=== PATIENT | female | born 1975 ===

== ENCOUNTER 2017-08-21 21:35 | Emergency (ER) | payer BC, OTHER ==
[2017-08-21 21:36] VITALS: BMI 39.8
[2017-08-21 21:46] VITALS: O2SAT 99
[2017-08-21 21:56] LABS: BASO # 0.03 K/mm3 (0.0-2.0); BASO % 0.4 % (0.0-3.0); EOS # 0.3 (0.0-0.7); EOS % 3.7 % (1.5-5.0); GRAN # 3.82 (1.4-6.5); GRAN % 47.2 % (50.0-68.0); HEMATOCRIT 42.8 % (36.0-48.0); LYMPH # 3.2 (1.2-3.4); LYMPH % 39.2 % (22.0-35.0); MEAN CELL VOLUME 82.6 fl (80.0-105.0); MEAN CORPUSCULAR HEMOGLOBIN 26.6 pg (25.0-35.0); MEAN CORPUSCULAR HGB CONC 32.2 g/dl (31.0-37.0); MEAN PLATELET VOLUME 11.2 fl (7.0-11.0); MONO # 0.8 (0.1-0.6); MONO % 9.5 % (1.0-6.0); RED CELL DISTRIBUTION WIDTH 14.2 % (11.5-14.5); WHITE BLOOD COUNT 8.1 10^3/ul (4.5-11.0)
[2017-08-21] MEDS: Albuterol-Ipratrop 3 mg / 0.5 (3 ml) UD IH SCH ×3 (21:57→22:24)
--- NOTE | 2017-08-21 21:57 | ED PDOC ---
Arrival/HPI <Mickey Rdz - Last Filed: 08/21/17 22:56> - General Historian: Patient - History of Present Illness Time/Duration: Prior to Arrival Symptom Onset: Gradual Symptom Course: Unchanged Quality: Other Severity Level: Moderate Context: Exertion <Rojas Peoples - Last Filed: 08/22/17 06:41> - General Chief Complaint: Respiratory Distress Time Seen by Provider: 08/21/17 21:41 - History of Present Illness Narrative History of Present Illness (Text): 08/21/17 21:53 This is a 42 yo female with past medical hx of asthma and MS presenting with chief complaint of wheezing and shortness of breath. Pt says this has been going on for 30-40 mins. Started when pt was cleaning house and said she felt she was wheezing. She used her albuterol pump but it did not help. She says she usually has an exacerbation 1-2 x per year. She has never been intubated. She denies being on any higher intensity asthma regimen ever. She reports a productive cough with phlegm. PMH: Asthma, MS PSH: Denies FH: HTN, DM Home meds: albuterol prn, teriflunomide Allergies: NKDA Social: denies smoking, drinking, drug use. Works as a social sciences professor. Born in [place]. 08/21/17 21:57 (Rojas Peoples) Past Medical History - Provider Review Nursing Documentation Reviewed: Yes - Travel History Have you recently traveled outside [place] w/in the past 3 mons?: No - Infectious Disease Hx of Infectious Diseases: None - Tetanus Immunization Tetanus Immunization: Unknown - Cardiac Hx Hypertension: Yes Hx Pacemaker: No - Pulmonary Hx Respiratory Disorders: Yes Hx Asthma: Yes - Neurological Hx Multiple Sclerosis: Yes Hx Paralysis: No - HEENT Hx HEENT Disorder: No - Renal Hx Renal Disorder: No - Endocrine/Metabolic Hx Endocrine Disorders: No - Hematological/Oncological Hx Blood Transfusions: No Hx Blood Transfusion Reaction: No - Integumentary Hx Dermatological Disorder: No - Musculoskeletal/Rheumatological Hx Musculoskeletal Disorders: No - Gastrointestinal Hx Gastrointestinal Disorders: No - Genitourinary/Gynecological Other/Comment: Fibroids - Psychiatric Hx Emotional Abuse: No Hx Physical Abuse: No Hx Substance Use: No - Anesthesia Hx Anesthesia: No Hx Anesthesia Reactions: No Hx Malignant Hyperthermia: No - Suicidal Assessment Feels Threatened In Home Enviroment: No <Rojas Peoples - Last Filed: 08/22/17 06:41> Family/Social History - Physician Review Nursing Documentation Reviewed: Yes Family/Social History: Diabetes Smoking Status: Never Smoked Hx Alcohol Use: No Hx Substance Use: No Hx Substance Use Treatment: No <Rojas Peoples - Last Filed: 08/22/17 06:41> Allergies/Home Meds <Mickey Rdz - Last Filed: 08/21/17 22:56> <Rojas Peoples - Last Filed: 08/22/17 06:41> Allergies/Adverse Reactions: Allergies COCONUT Adverse Reaction (Intermediate, Uncoded 06/02/16 08:30) DIARRHEA Home Medications: Home Meds Medication Instructions Recorded Confirmed Albuterol HFA [Ventolin HFA 90 2 puff IH Q4 PRN 06/02/16 06/02/16 mcg/actuation (8 g)] Dimethyl Fumarate [Tecfidera] 240 mg PO BID 06/02/16 06/02/16 Enalapril Maleate [Vasotec] 5 mg PO DAILY 06/02/16 06/02/16 Review of Systems - Review of Systems Constitutional: absent: Fatigue, Fevers, Night Sweats Eyes: absent: Vision Changes, Photophobia ENT: absent: Hearing Changes, Tinnitus Respiratory: SOB, Cough, Wheezing Cardiovascular: absent: Chest Pain, Palpitations Gastrointestinal: absent: Abdominal Pain, Stool Changes Genitourinary Female: absent: Dysuria, Frequency Musculoskeletal: absent: Arthralgias, Back Pain Skin: absent: Rash, Pruritis Neurological: absent: Headache, Dizziness Endocrine: absent: Diaphoresis, Polyuria Hemo/Lymphatic: absent: Adenopathy, Easy Bleeding Psychiatric: absent: Anxiety, Depression <Rojas Peoples - Last Filed: 08/22/17 06:41> Physical Exam Appearance: Positive for: Uncomfortable Mental Status: Positive for: Alert and Oriented X 3 - Systems Exam Head: Present: Atraumatic, Normocephalic Pupils: Present: PERRL Extroacular Muscles: Present: EOMI Mouth: Present: Moist Mucous Membranes Respiratory/Chest: Present: Wheezes. No: Clear to Auscultation, Respiratory Distress Cardiovascular: Present: Regular Rate and Rhythm, Normal S1, S2 Abdomen: No: Tenderness, Distention, Peritoneal Signs Back: Present: Normal Inspection Upper Extremity: Present: Normal Inspection. No: Cyanosis, Edema Lower Extremity: Present: Normal Inspection. No: Edema Neurological: Present: CN II-XII Intact, Speech Normal Skin: Present: Warm, Dry Psychiatric: Present: Alert, Oriented x 3, Normal Insight, Normal Concentration <Rojas Peoples - Last Filed: 08/22/17 06:41> Vital Signs Temp Pulse Resp BP Pulse Ox 08/22/17 00:43 98.0 F 82 18 163/102 H 99 08/21/17 22:09 19 99 08/21/17 21:39 97.8 F 93 H 28 H 188/123 H 99 Medical Decision Making <Mickey Rdz - Last Filed: 08/21/17 22:56> <Rojas ePoples - Last Filed: 08/22/17 06:41> ED Course and Treatment: Impression: Pt seen and evaluated with coroner/medical examiner. Pt, whose past medical history includes asthma and multiple sclerosis, presented for wheezing and shortness of breath at home tonight. Aware and agree with HPI, clinical findings, plan, and management. Plan: -- EKG -- Chest X-ray -- Labs, rapid influenza -- Duoneb -- Solu-medrol -- Reassess and disposition (Mickey Rdz) - Lab Interpretations Lab Results: 08/21/17 21:45 08/21/17 21:45 Lab Results 08/21/17 21:45: Sodium 142, Potassium 3.8, Chloride 107, Carbon Dioxide 26, Anion Gap 13, BUN 15, Creatinine 0.8, Est GFR ( Amer) > 60, Est GFR (Non- Af Amer) > 60, Random Glucose 119 H, Calcium 9.4, Total Bilirubin 0.4, AST 34, ALT 38, Alkaline Phosphatase 152 H, Total Protein 7.7, Albumin 4.1, Globulin 3.6 , Albumin/Globulin Ratio 1.1 08/21/17 21:45: WBC 8.1, RBC 5.18, Hgb 13.8, Hct 42.8, MCV 82.6, MCH 26.6, MCHC 32.2, RDW 14.2, Plt Count 254, MPV 11.2 H, Gran % 47.2 L, Lymph % (Auto) 39.2 H , [place] % (Auto) 9.5 H, Eos % (Auto) 3.7, Baso % (Auto) 0.4, Gran # 3.82, Lymph # 3.2, [place] # 0.8 H, Eos # 0.3, Baso # 0.03 - RAD Interpretation Radiology Orders: 08/21/17 21:46 CXR [CHEST PORTABLE] [RAD] Stat - Medication Orders Current Medication Orders: Discontinued Medications Albuterol/Ipratropium (Duoneb 3 Mg/0.5 Mg (3 Ml) Ud) 3 ml IH Q15M KEVIN Stop: 08/21/17 22:16 Last Admin: 08/21/17 22:24 Dose: 3 ml Methylprednisolone (Solu-Medrol) 125 mg IVP STAT STA Stop: 08/21/17 21:47 Last Admin: 08/21/17 22:00 Dose: 125 mg IVP Administration Document 08/21/17 22:00 IT (Rec: 08/21/17 22:00 IT [id number]) Charges for Administration # of IVP Administrations 1 - PA / [employer] / Resident Statement / has reviewed & agrees with the documentation as recorded. / has examined the patient and agrees with the treatment plan. <Mickey Rdz - Last Filed: 08/21/17 22:56> Disposition/Present on Arrival <Mickey Rdz - Last Filed: 08/21/17 22:56> - Present on Arrival Any Indicators Present on Arrival: No History of DVT/PE: No History of Uncontrolled Diabetes: No Urinary Catheter: No History of Decub. Ulcer: No History Surgical Site Infection Following: None - Disposition Have Diagnosis and Disposition been Completed?: Yes Disposition Time: 02:00 Patient Plan: Discharge <Rojas Peoples - Last Filed: 08/22/17 06:41> - Disposition Diagnosis: Asthma Disposition: HOME/ ROUTINE Condition: STABLE Discharge Instructions (ExitCare): Asthma (ED) Prescriptions: Azithromycin [Z-Rocky] 250 mg PO DAILY #6 tab predniSONE [Prednisone] 40 mg PO DAILY #6 tab Referrals: [facility] Richi Newman, [Non-Staff] - Follow up with primary Forms: [employer] (Danish)
[2017-08-21 22:08] LABS: ALB/GLOB RATIO 1.1 (1.1-1.8); BILIRUBIN,TOTAL 0.4 mg/dL (0.2-1.3); CALCIUM 9.4 mg/dL (8.4-10.5); GFR AFRICAN-AMERICAN > 60; GLUCOSE,RANDOM 119 mg/dL (70-110); TOTAL PROTEIN 7.7 g/dL (5.8-8.3)
[2017-08-21 22:12] LABS: ALKALINE PHOSPHATASE 152 U/L (38-126); ALT/SGPT 38 U/L (7-56); AST/SGOT 34 U/L (14-36); BLOOD UREA NITROGEN 15 mg/dL (7-21); CARBON DIOXIDE 26 mmol/L (21-33); CHLORIDE 107 mmol/L (98-107); POTASSIUM 3.8 mmol/L (3.6-5.0); SODIUM 142 mmol/L (132-148)
[2017-08-22 00:44] VITALS: BP 163/102; PULSE 82; RESP 18; TEMP 98
--- NOTE | 2017-08-22 08:19 | RAD ---
HISTORY: cough/asthma exacerbation COMPARISON: 11/05/2016 FINDINGS: LUNGS: No active pulmonary disease. PLEURA: No significant pleural effusion identified, no pneumothorax apparent. CARDIOVASCULAR: Normal. OSSEOUS STRUCTURES: No significant abnormalities. VISUALIZED UPPER ABDOMEN: Normal. OTHER FINDINGS: None. IMPRESSION: No active disease.
== END 2017-08-22 00:44 | disposition home or self-care (01) ==
LOC: ED 21:35
DX: J45.909 Unspecified asthma, uncomplicated (principal); G35 Multiple sclerosis; I10 Essential (primary) hypertension; Z83.3 Family history of diabetes mellitus
CPT/HCPCS: 71010; 80053; 85025; 96374; 99284; J2930